=== PATIENT | male | born 1950 | race Caucasian/White ===

== ENCOUNTER 2018-04-01 08:27 | Day surgery (SDC) | payer OTHER ==
[~2018-04-01] VITALS: Ht 180.3 cm; Wt 101.4 kg
[~2018-04-01 08:27] MED LIST: BUPIVACAINE/PF-EPI 0.5% 1:200K ONE; COLE625T12 PO; Vitamin A PO
[2018-04-01] MEDS ORDERED: LACTATED RINGERS 1,000 ML IV SCH (08:49)
[2018-04-01 09:00] VITALS: BP 145/98
[2018-04-01] MEDS ORDERED: GABAPENTIN 300 MG CAPSULE PO ONE (09:00)
[2018-04-01] MEDS ORDERED: ACETAMINOPHEN 500 MG TABLET PO ONE (09:00)
[2018-04-01] MEDS ORDERED: MEPERIDINE/PF 25MG/0.5ML IVPush PRN (09:30)
[2018-04-01] MEDS ORDERED: HALOPERIDOL 5 MG/ML IV PRN (09:30)
[2018-04-01] MEDS ORDERED: PROMETHAZINE 25 MG/ML, 1ML IV PRN (09:30)
[2018-04-01] MEDS ORDERED: HYDROmorphone 2 MG/ML, 1ML IVPush PRN (09:30)
[2018-04-01] MEDS ORDERED: DIPHENHYDRAMINE 50 MG/ML, 1ML IVPush PRN (09:30)
[2018-04-01] MEDS ORDERED: hydrALAzine 20 MG/ML, 1ML IV PRN (09:30)
[2018-04-01] MEDS ORDERED: OXYcodone 5 MG/5 ML ORAL.SOL UDC PO PRN (09:30)
[2018-04-01] MEDS ORDERED: FENTANYL PF 100 MCG/2ML IV PRN (09:30)
[2018-04-01] MEDS ORDERED: LABETALOL 5MG/ML, 20ML IV PRN (09:30)
[2018-04-01] MEDS ORDERED: FENTANYL PF 250 MCG/5ML ONE (11:04)
[2018-04-01] MEDS ORDERED: FENTANYL PF 100 MCG/2ML ONE (13:27)
[2018-04-01] MEDS ORDERED: ONDANSETRON 2MG/ML, 2ML ONE (13:28)
[2018-04-01] MEDS ORDERED: ROCURONIUM 10MG/ML,5ML ONE (13:28)
[2018-04-01] MEDS ORDERED: GLYCOPYRROLATE 0.2MG/1ML, 5ML ONE (13:28)
[2018-04-01] MEDS ORDERED: DEXAMETHASONE 4 MG/ML, 1ML ONE (13:28)
[2018-04-01] MEDS ORDERED: CEFAZOLIN 1,000 MG ONE (13:28)
[2018-04-01] MEDS ORDERED: SUCCINYLCHOLINE 20 MG/ML, 10ML ONE (13:28)
[2018-04-01] MEDS ORDERED: PROPOFOL 10 MG/ML, 20ML ONE (13:28)
[2018-04-01] MEDS ORDERED: NEOSTIGMINE 1 MG/ML, 10ML ONE (13:28)
[2018-04-01] MEDS ORDERED: KETOROLAC 30 MG/1 ML ONE (15:43)
== END 2018-04-01 17:14 | disposition home or self-care (01) ==
LOC: OUT 08:27
PROVIDERS: ATTEND Colon & Rectal Surgery
DX: K40.30 Unilateral inguinal hernia, with obstruction, without gangrene, not specified as recurrent (principal); G47.33 Obstructive sleep apnea (adult) (pediatric); Z98.890 Other specified postprocedural states; Z72.89 Other problems related to lifestyle
CPT/HCPCS: 49650; 88302; 93005; C1781; J0330; J0690; J1100; J1885; J2405; J2704; J2710; J3010; J3490; J7120; S2900

== ENCOUNTER → 2018-09-22 | Outpatient (CLI) | payer OTHER, MEDICARE ==
[~2018-09-22] MED LIST changes: -BUPIVACAINE/PF-EPI 0.5% 1:200K ONE
[2018-09-22 11:54] LABS: CREATININE 1.35 mg/dL (0.7-1.3)
== END | disposition home or self-care (01) ==
LOC: LAB 11:25
PROVIDERS: ATTEND Colon & Rectal Surgery
DX: K40.90 Unilateral inguinal hernia, without obstruction or gangrene, not specified as recurrent (principal)
CPT/HCPCS: 36415; 82565; 84520

== ENCOUNTER → 2018-10-04 | Outpatient (CLI) | payer OTHER | END | disposition home or self-care (01) | LOC: CFH 13:00 | PROVIDERS: ATTEND Student in an Organized Health Care Education/Training Program | DX: D40.11 Neoplasm of uncertain behavior of right testis (principal); N50.82 Scrotal pain | CPT/HCPCS: 76870 ==

== ENCOUNTER 2018-10-19 13:41 | Outpatient (CLI) | payer OTHER ==
[2018-10-19 14:38] LABS: BASOPHILS # (AUTO) 0.03 x10^3/uL (0-0.1); BASOPHILS % (AUTO) 0 % (0-1); EOSINOPHILS # (AUTO) 0.14 x10^3/uL (0-0.4); EOSINOPHILS % (AUTO) 2 % (1-7); LYMPHOCYTES # (AUTO) 1.35 x10^3/uL (1-3.4); LYMPHOCYTES % (AUTO) 20 % (22-44); MD NO; MEAN CORPUSCULAR HEMOGLOBIN 31.4 pg (27.5-34.5); MEAN CORPUSCULAR HGB CONC 33.6 g/dL (33.2-36.2); MEAN CORPUSCULAR VOLUME 93.3 fL (81-97); MEAN PLATELET VOLUME 7.7 fL (7.4-10.4); MONOCYTES # (AUTO) 0.72 x10^3/uL (0.2-0.8); MONOCYTES % (AUTO) 11 % (2-9); NEUTROPHILS % (AUTO) 67 % (42-75); PLATELET COUNT 240 x10^3/uL (130-400); RED BLOOD COUNT 5.02 x10^6/uL (4.38-5.82); RED CELL DISTRIBUTION WIDTH 13.6 % (9.4-14.8)
[2018-10-19 14:48] LABS: ALANINE AMINOTRANSFERASE 27 U/L (12-78); ALBUMIN 3.6 g/dL (3.4-5.0); ANION GAP 2 mmol/L (5-15); CALCIUM 9.2 mg/dL (8.5-10.1); CHLORIDE 111 mmol/L (98-107)
[2018-10-19 14:50] LABS: ALKALINE PHOSPHATASE 60 U/L (45-117); BILIRUBIN,TOTAL 0.6 mg/dL (0.2-1.0); TOTAL PROTEIN 7.4 g/dL (6.4-8.2)
== END 2018-10-19 23:59 | disposition home or self-care (01) ==
LOC: STAR 13:41
PROVIDERS: ATTEND Student in an Organized Health Care Education/Training Program
DX: Z01.818 Encounter for other preprocedural examination (principal); D40.11 Neoplasm of uncertain behavior of right testis; N50.82 Scrotal pain
CPT/HCPCS: 36415; 80053; 85025; 93005

== ENCOUNTER 2018-10-25 12:34 | Day surgery (SDC) | payer OTHER, MEDICARE ==
[~2018-10-25] VITALS: Ht 180.3 cm; Wt 98.8 kg
[2018-10-25] MEDS ORDERED: LACTATED RINGERS 1,000 ML IV SCH (13:33)
[2018-10-25] MEDS ORDERED: EPINEPHRINE 1 MG/ML, 1ML ONE (14:27)
[2018-10-25] MEDS ORDERED: BUPIVACAINE/PF 0.5% ONE (14:27)
[2018-10-25] MEDS ORDERED: BUPIVACAINE/PF 0.25% ONE (14:27)
[2018-10-25] MEDS ORDERED: FENTANYL PF 250 MCG/5ML ONE (14:30)
[2018-10-25] MEDS ORDERED: MIDAZOLAM 1 MG/ML, 2ML ONE (14:30)
[2018-10-25] MEDS ORDERED: NEOSTIGMINE 1 MG/ML, 10ML ONE (14:59)
[2018-10-25] MEDS ORDERED: DEXAMETHASONE 4 MG/ML, 1ML ONE (14:59)
[2018-10-25] MEDS ORDERED: CEFAZOLIN 1,000 MG ONE (14:59)
[2018-10-25] MEDS ORDERED: PROPOFOL 10 MG/ML, 20ML ONE (14:59)
[2018-10-25] MEDS ORDERED: SUCCINYLCHOLINE 20 MG/ML, 10ML ONE (14:59)
[2018-10-25] MEDS ORDERED: GLYCOPYRROLATE 0.2MG/1ML, 5ML ONE (14:59)
[2018-10-25] MEDS ORDERED: ROCURONIUM 10MG/ML,5ML ONE (14:59)
[2018-10-25] MEDS ORDERED: ONDANSETRON 2MG/ML, 2ML ONE (14:59)
[2018-10-25] MEDS ORDERED: HYDROmorphone 2 MG/ML, 1ML IVPush PRN (15:30)
[2018-10-25] MEDS ORDERED: PROMETHAZINE 25 MG/ML, 1ML IV PRN (15:30)
[2018-10-25] MEDS ORDERED: ONDANSETRON ODT 8 MG PO PRN (15:30)
[2018-10-25] MEDS ORDERED: ONDANSETRON 2MG/ML, 2ML IV PRN (15:30)
[2018-10-25] MEDS ORDERED: OXYcodone 5 MG/5 ML ORAL.SOL UDC PO PRN (15:30)
[2018-10-25] MEDS ORDERED: PROMETHAZINE 25 MG SUPP PR PRN (15:30)
[2018-10-25] MEDS ORDERED: ACETAMINOPHEN 325 MG TABLET PO PRN (15:30)
[2018-10-25] MEDS ORDERED: FENTANYL PF 100 MCG/2ML IV PRN (15:30)
[2018-10-25] MEDS ORDERED: FENTANYL PF 100 MCG/2ML ONE (17:19)
[2018-10-25] MEDS ORDERED: OXYcodone 5 MG/5 ML ORAL.SOL UDC ONE (17:19)
[2018-10-25] MEDS ORDERED: ACETAMINOPHEN 650 MG/20.3 ML UDC ONE (17:19)
[2018-10-25 19:16] VITALS: BP 133/68
== END 2018-10-25 19:38 | disposition home or self-care (01) ==
LOC: OR 12:34 → 4NOR 17:50 → OR 19:38 → 4NOR 20:07 → OR 20:07
PROVIDERS: ATTEND Student in an Organized Health Care Education/Training Program
DX: C62.91 Malignant neoplasm of right testis, unspecified whether descended or undescended (principal); G47.33 Obstructive sleep apnea (adult) (pediatric); E72.12 Methylenetetrahydrofolate reductase deficiency; Z79.899 Other long term (current) drug therapy; Z98.890 Other specified postprocedural states; Z80.42 Family history of malignant neoplasm of prostate
CPT/HCPCS: 54530; 88307; J0330; J0690; J1100; J2250; J2405; J2704; J2710; J3010; J7120; G0378; J0171; J3490

== ENCOUNTER 2018-11-22 15:50 | Outpatient (CLI) | payer OTHER, MEDICARE | END 2018-11-22 23:59 | disposition home or self-care (01) | LOC: RAD 15:50 | PROVIDERS: ATTEND Radiology Radiation Oncology | DX: C48.8 Malignant neoplasm of overlapping sites of retroperitoneum and peritoneum (principal); R07.9 Chest pain, unspecified | CPT/HCPCS: 71046 ==

== ENCOUNTER → 2019-11-02 | Outpatient (CLI) | payer OTHER, MEDICARE ==
[~2019-11-02] MED LIST changes: +OMNIPAQUE 350 MG/ML, 100ML BOTTLE ONE
== END | disposition home or self-care (01) ==
LOC: CFH 09:10
PROVIDERS: ATTEND General Practice
DX: C49.9 Malignant neoplasm of connective and soft tissue, unspecified (principal); K76.0 Fatty (change of) liver, not elsewhere classified; K40.90 Unilateral inguinal hernia, without obstruction or gangrene, not specified as recurrent; M51.36 Other intervertebral disc degeneration, lumbar region
CPT/HCPCS: 74177; Q9967

== ENCOUNTER → 2020-03-27 | Outpatient (CLI) | payer OTHER, MEDICARE | END | disposition home or self-care (01) | LOC: CFH 11:35 | PROVIDERS: ATTEND Surgery | DX: C49.9 Malignant neoplasm of connective and soft tissue, unspecified (principal); K76.0 Fatty (change of) liver, not elsewhere classified; I25.10 Atherosclerotic heart disease of native coronary artery without angina pectoris; I70.0 Atherosclerosis of aorta; K57.30 Diverticulosis of large intestine without perforation or abscess without bleeding; K40.90 Unilateral inguinal hernia, without obstruction or gangrene, not specified as recurrent | CPT/HCPCS: 74177; Q9967 ==